=== PATIENT | female | born 1955 | race Caucasian/White ===

== ENCOUNTER → 2021-09-08 | Outpatient (CLI) | payer OTHER | LOC: MC.RAD 13:45 | DX: Z12.31 Encounter for screening mammogram for malignant neoplasm of breast (principal) ==

== ENCOUNTER → 2023-10-20 | Outpatient (CLI) | payer MEDICARE, OTHER | LOC: MC.RAD 09:56 | DX: Z12.31 Encounter for screening mammogram for malignant neoplasm of breast (principal) ==